=== PATIENT | male | born 1980 | race Caucasian/White ===

== ENCOUNTER 2016-11-16 22:14 | Emergency (ER) | payer OTHER ==
[~2016-11-16] VITALS: Ht 177.8 cm; Wt 95.3 kg
--- NOTE | 2016-11-16 23:30 | NUR ---
PT AMBULATORY TO ER BED 5 PT STATES HE HAS BEEN HAVING RIGHT SIDED FLANK PAIN X 1 DAY, PT DENIES ANY INJURY OR TRAUMA. PT AOX4 RR EVEN AND UNLABORED. NO SOB NOTED. NAD NOTED. NO NVD AT THIS TIME. PT GOWNED AND PLACED ON MONITOR WAITING FOR MD BLACK.
--- NOTE | 2016-11-16 23:34 | NUR ---
URINE COLLECTED. MEKA REYNA AT BEDSIDE FOR EVAL.
--- NOTE | 2016-11-16 23:44 | NUR ---
PT TO CT.
[2016-11-16] MEDS ORDERED: HYDROCODONE/APAP 10/325MG 1 EA TABLET ONE (23:48)
[2016-11-16] MEDS ORDERED: ONDANSETRON 4 MG TAB.RAPDIS ONE (23:48)
--- NOTE | 2016-11-16 23:50 | NUR ---
PT RETURNED FROM CT.
[2016-11-16] MEDS: HYDROCODONE/APAP 10/325MG 1 EA TABLET PO ONE (23:53)
[2016-11-16] MEDS: ONDANSETRON 4 MG TAB.RAPDIS SL ONE (23:54)
[2016-11-17 00:56] LABS: APPEARANCE,URINE CLEAR (CLEAR); BILIRUBIN,URINE NEGATIVE (NEGATIVE); BLOOD, URINE 3+ Ery/uL (NEGATIVE); COLOR,URINE YELLOW (YELLOW); KETONES,URINE NEGATIVE (NEGATIVE); LEUKOCYTE ESTERASE ,URINE NEGATIVE (NEGATIVE); NITRITE, URINE NEGATIVE (NEGATIVE); PROTEIN,URINE NEGATIVE (NEGATIVE); UGLUCOSE NEGATIVE (NEGATIVE); UROBILINOGEN,URINE 0.2 EU/dL (0.2)
[2016-11-17 01:09] LABS: BACTERIA,URINE None seen /HPF (None Seen); WBC,URINE 0-2 /HPF (0-3)
[2016-11-17 01:10] LABS: SQUAMOUS EPITHELIAL CELL,UR Rare /HPF (None Seen)
--- NOTE | 2016-11-17 01:13 | NUR ---
Patient discharged to home in stable condition. Written and verbal after care instructions given. Patient verbalizes understanding of instruction. ambulatory with a steady gait. pt instructed not to drive. pt verbalize understanding. pt accompanied by mother
[2016-11-17 01:14] VITALS: BP 132/87
== END 2016-11-17 01:15 | disposition home or self-care (01) ==
LOC: ER 22:14
DX: N20.0 Calculus of kidney (principal)
CPT/HCPCS: 74176; 81001; 99285; A4606; Q0162; Z7610; 81000-TC

== ENCOUNTER 2016-11-17 10:36 | Emergency (ER) | payer OTHER ==
[~2016-11-17] VITALS: Ht 177.8 cm; Wt 95.3 kg
--- NOTE | 2016-11-17 10:50 | NUR ---
AT FOR EVAL. PT CAME IN FOR SAME COMPLAINTS FROM VISIT LAST NIGHT STATING THAT HE DECIDED TO GO HERE INSTEAD OF GETTING HIS PRESCRIPTIONS REFILLED. VSS. NAD NOTED. SAFETY AND COMFORT MEASURES PROVIDED. WILL MONITOR.
[2016-11-17] MEDS ORDERED: ONDANSETRON 4 MG TAB.RAPDIS PO ONE (11:00)
[2016-11-17] MEDS ORDERED: HYDROCODONE/APAP 10/325MG 1 EA TABLET PO ONE (11:00)
[2016-11-17] MEDS ORDERED: ONDANSETRON 4 MG TAB.RAPDIS ONE (11:03)
[2016-11-17] MEDS ORDERED: HYDROCODONE/APAP 10/325MG 1 EA TABLET ONE (11:03)
--- NOTE | 2016-11-17 11:10 | NUR ---
PT MEDICATED ORDERED.
[2016-11-17] MEDS ORDERED: ONDANSETRON HCL/PF 4 MG/2 ML VIAL IM ONE (12:00)
[2016-11-17] MEDS ORDERED: IV SET PRIMARY 1 EA INFUS.SET MC ONE (12:07)
[2016-11-17] MEDS ORDERED: IV NS 0.9% 1,000 ML ONE (12:07)
[2016-11-17] MEDS ORDERED: MORPHINE SULFATE INJ 4 MG/ML DISP.SYRIN ONE (12:07)
[2016-11-17] MEDS ORDERED: ONDANSETRON HCL/PF 4 MG/2 ML VIAL ONE ×2 (12:09→12:11)
[2016-11-17 12:19] LABS: BASOPHILS # (AUTO) 0.1 /CMM (0.0-0.2); BASOPHILS % (AUTO) 0.5 % (0.0-2.0); EOSINOPHILS # (AUTO) 0.2 /CMM (0.0-0.7); EOSINOPHILS % (AUTO) 1.1 % (0.0-6.0); HEMATOCRIT 49 % (39-51); HEMOGLOBIN 15.9 g/dL (13.5-17.5); LYMPHOCYTES # (AUTO) 1.7 /CMM (0.8-4.8); LYMPHOCYTES % (AUTO) 10.9 % (20.0-44.0); MEAN CORPUSCULAR HEMOGLOBIN 30 PG (26.0-33.0); MEAN CORPUSCULAR HGB CONC 33 g/dl (31.0-36.0); MEAN CORPUSCULAR VOLUME 92 fL (80-96); MONOCYTES % (AUTO) 6.4 % (2.0-12.0); NEUTROPHILS # (AUTO) 12.2 /CMM (1.8-8.9); NEUTROPHILS % (AUTO) 81.1 % (43.0-81.0); PLATELET COUNT (AUTO) 296 /CMM (150-450); RDW COEFFICIENT OF VARIATION 12.6 (11.5-15.0); RED BLOOD CELL COUNT(AUTO) 5.32 MIL/uL (4.5-6.0); WHITE BLOOD COUNT (AUTO) 15.2 K/uL (4.3-11.0)
--- NOTE | 2016-11-17 12:23 | NUR ---
NEW ORDERS CARRIED OUT. VSS. WILL MONITOR.
[2016-11-17 12:29] LABS: CALCIUM, SERUM 9.5 mg/dL (8.5-10.1); CREATININE 1.1 mg/dL (0.6-1.3)
[2016-11-17] MEDS ORDERED: MORPHINE SULFATE INJ 2 MG/ML DISP.SYRIN IV ONE (12:30)
[2016-11-17] MEDS ORDERED: IV NS 0.9% 1,000 ML BAG IV ONE (12:30)
[2016-11-17] MEDS ORDERED: ONDANSETRON HCL/PF 4 MG/2 ML VIAL IVP ONE (12:30)
[2016-11-17 12:34] LABS: ALBUMIN 4.5 g/dL (3.4-5.0); BILIRUBIN,DIRECT 0.1 mg/dL (0.0-0.2); BILIRUBIN,TOTAL 0.7 mg/dL (0.2-1.0); TOTAL PROTEIN, SERUM 8.1 g/dL (6.4-8.2)
[2016-11-17] MEDS ORDERED: HYDROMORPHONE 1 MG/1 ML DISP.SYRIN ONE (12:38)
[2016-11-17] MEDS ORDERED: HYDROMORPHONE 1 MG/1 ML DISP.SYRIN IV ONE (13:00)
[2016-11-17 13:56] VITALS: BP 138/85
--- NOTE | 2016-11-17 13:56 | NUR ---
IV removed. Catheter intact and site benign. Pressure and 4x4 applied to site. No bleeding noted.Patient discharged to home in stable condition. Written and verbal after care instructions given. Patient verbalizes understanding of instruction.
== END 2016-11-17 13:56 | disposition home or self-care (01) ==
LOC: ER 10:37
DX: N23 Unspecified renal colic (principal); Z87.442 Personal history of urinary calculi
CPT/HCPCS: 36415; 80048; 80076; 83690; 85025; 96361; 96374; 96375; 99284; A4606; J1170; J2270; J2405; J7030; Q0162; Z7610

== ENCOUNTER 2016-12-11 18:04 | Emergency (ER) | payer OTHER ==
[~2016-12-11] VITALS: Ht 177.8 cm; Wt 90.7 kg
[2016-12-11 18:20] VITALS: BP 158/75
== END 2016-12-11 19:50 | disposition home or self-care (01) ==
LOC: ER 18:05
DX: J06.9 Acute upper respiratory infection, unspecified (principal)
CPT/HCPCS: 99283; A4606; Z7610